=== PATIENT | male | born 1960 | race Two or more races ===

== ENCOUNTER 2023-02-16 23:41 | Emergency (ER) | payer OTHER ==
[~2023-02-16] VITALS: Ht 182.9 cm; Wt 87.5 kg
[2023-02-16] MEDS ORDERED: ZOLPIDEM TARTRA10 MG PO (23:59)
[2023-02-16] MEDS ORDERED: QUETIAPINE FUM100 MG PO (23:59)
== END 2023-02-17 01:08 | disposition home or self-care (01) ==
LOC: ER 23:41
DX: S01.01XA Laceration without foreign body of scalp, initial encounter (principal); W19.XXXA Unspecified fall, initial encounter; Y93.9 Activity, unspecified; Y92.009 Unspecified place in unspecified non-institutional (private) residence as the place of occurrence of the external cause; Y99.9 Unspecified external cause status

== ENCOUNTER 2023-02-24 12:52 | Emergency (ER) | payer OTHER ==
[~2023-02-24] VITALS: Ht 182.9 cm; Wt 87.5 kg
[~2023-02-24 12:52] MED LIST: QUETIAPINE FUM100 MG PO; ZOLPIDEM TARTRA10 MG PO
[2023-02-24] MEDS ORDERED: SEROQUEL25 MG PO (22:23)
== END 2023-02-24 15:35 | disposition left against medical advice (07) ==
LOC: ER 12:52
DX: Z53.21 Procedure and treatment not carried out due to patient leaving prior to being seen by health care provider (principal)

== ENCOUNTER 2023-02-24 22:16 | Emergency (ER) | payer OTHER ==
[~2023-02-24] VITALS: Ht 182.9 cm; Wt 87.5 kg
[2023-02-24] MEDS ORDERED: SEROQUEL25 MG PO (22:23)
== END 2023-02-24 22:50 | disposition home or self-care (01) ==
LOC: ER 22:16
DX: Z48.02 Encounter for removal of sutures (principal)

== ENCOUNTER 2025-04-10 10:05 | Outpatient (CLI) | payer OTHER ==
[~2025-04-10 10:05] MED LIST changes: +SEROQUEL25 MG PO
== END 2025-04-10 10:06 | disposition home or self-care (01) ==
LOC: NUCLEAR 10:05
DX: I73.89 Other specified peripheral vascular diseases (principal); I87.2 Venous insufficiency (chronic) (peripheral)

== ENCOUNTER 2025-04-16 10:08 | Outpatient (CLI) | payer OTHER | END 2025-04-16 10:09 | disposition home or self-care (01) | LOC: NUCLEAR 10:08 | DX: I73.89 Other specified peripheral vascular diseases (principal) ==